=== PATIENT | female | born 1975 | race Caucasian/White ===

== ENCOUNTER 2016-09-22 08:50 | Emergency (ER) | payer MEDICAID ==
[~2016-09-22] VITALS: Ht 162.6 cm; Wt 60.0 kg
[~2016-09-22 08:50] MED LIST: CALC1TAB98 PO; PREN1TAB17 PO
[2016-09-22 08:51] VITALS: Ht 162.6 cm; Wt 60.0 kg
[2016-09-22] MEDS ORDERED: IBUP-1542 PO (09:14)
[2016-09-22] MEDS ORDERED: AMOX1TAB10 PO (09:14)
--- NOTE | 2016-09-22 09:22 | ERD ---
ER Documentation Chief Complaint Date/Time DATE: 09/22/16 TIME: 09:15 Chief Complaint dog bite to lt thigh on tuesday HPI 41 yo female comes in with a dog bite to her left thigh that occurred 2 days ago. She states that this happened on Tuesday then the next day she noticed greenish discoloration. She states the dog has its vaccinations. She does not recall her last tetanus shot. ROS All systems reviewed and are negative except as per history of present illness. Medications Home Meds Active Scripts Ibuprofen* (Motrin*) 600 Mg Tab, 600 MG PO Q6, #15 TAB Prov:BRANDEE CARREON PA-C 09/22/16 Amoxicillin/Potassium Clav (Amox-Clav 875-125 mg Tablet) 875-125 mg Tab, 1 TAB PO BID for 5 Days, #10 TAB Prov:BRANDEE CARREON PA-C 09/22/16 Reported Medications Calcium Carbonate/Vitamin D3 (Calcium + D Tablet) 1 Udtab Tablet, 1 UDTAB PO AM 12/04/13 Vit-Iron Fumarate-FA ( Tablet) 1 Each Tablet, 1 TAB PO DAILY, TAB 12/04/13 Allergies Allergies: Uncoded Allergies: no know allergies (Allergy, Unknown, 12/04/13) PMhx/Soc Medical and Surgical Hx: pt denies Medical Hx, pt denies Surgical Hx Hx Alcohol Use: No Hx Substance Use: No Hx Tobacco Use: No Physical Exam Vitals Vital Signs Date Time Temp Pulse Resp B/P Pulse Ox O2 Delivery O2 Flow Rate FiO2 09/22/16 08:51 97.6 71 18 122/66 98 Physical Exam General: Well-developed, well-nourished. The patient appears in no acute distress. HEENT: Head is normocephalic, atraumatic. No scleral icterus. Neck: Supple. Nontender. Lungs: Clear to auscultation. Normal air movement. Heart: Regular rate and rhythm. S1 and S2 are normal. No murmurs, gallops, or rubs. Abdomen: Nondistended. Extremities: No clubbing or cyanosis. Moving extremities x 4. No weakness. Neurologic: Alert and oriented 3. No focal deficits. Normal speech and gait. Skin: Abrasion to the left lateral thigh that is 1cm, healing. There is surrounding ecchymosis, no fluctuance or erythema Results 24 hrs Current Medications Medications (Trade) Dose Ordered Sig/Rafita Route PRN Reason Start Time Stop Time Status Last Admin Dose Admin Diphtheria/ Tetanus/Acell Pertussis (Adacel) 0.5 ml ONCE ONCE IM* 09/22/16 09:30 09/22/16 09:31 Procedures/MDM 41 yo female comes in with a dog bite that is superficial, with ecchymosis. No underlying abscess or cellulitis. Patient does not have systemic signs of infection. Departure Diagnosis: Primary Impression: Dog bite Condition: Good Patient Instructions: Dog Bite Referrals: [facility] YOU HAVE RECEIVED A MEDICAL SCREENING EXAM AND THE RESULTS INDICATE THAT YOU DO NOT HAVE A CONDITION THAT REQUIRES URGENT TREATMENT IN THE EMERGENCY DEPARTMENT. FURTHER EVALUATION AND TREATMENT OF YOUR CONDITION CAN WAIT UNTIL YOU ARE SEEN IN YOUR DOCTORS OFFICE WITHIN THE NEXT 1-2 DAYS. IT IS YOUR RESPONSIBILITY TO MAKE AN APPOINTMENT FOR FOLOW-UP CARE. IF YOU HAVE A PRIMARY DOCTOR --you should call your primary doctor and schedule an appointment IF YOU DO NOT HAVE A PRIMARY DOCTOR YOU CAN CALL OUR PHYSICIAN REFERRAL HOTLINE AT IF YOU CAN NOT AFFORD TO SEE A PHYSICIAN YOU CAN CHOSE FROM THE FOLLOWING [facility] [address] [facility]. [facility] [address] [facility] [facility] [address] [facility] [facility] [address] [facility] [facility] [address] [facility]. [facility]. [address] [facility]. [facility] YOU HAVE RECEIVED A MEDICAL SCREENING EXAM AND THE RESULTS INDICATE THAT YOU DO NOT HAVE A CONDITION THAT REQUIRES URGENT TREATMENT IN THE EMERGENCY DEPARTMENT. FURTHER EVALUATION AND TREATMENT OF YOUR CONDITION CAN WAIT UNTIL YOU ARE SEEN IN YOUR DOCTORS OFFICE WITHIN THE NEXT 1-2 DAYS. IT IS YOUR RESPONSIBILITY TO MAKE AN APPOINTMENT FOR FOLOW-UP CARE. IF YOU HAVE A PRIMARY DOCTOR --you should call your primary doctor and schedule and appointment IF YOU DO NOT HAVE A PRIMARY DOCTOR YOU CAN CALL OUR PHYSICIAN REFERRAL HOTLINE AT . IF YOU CAN NOT AFFORD TO SEE A PHYSICIAN YOU CAN CHOSE FROM THE FOLLOWING [facility] INSTITUTIONS: [facility] [address] [place] [address] [facility] [address] [place] [address] [facility] + [facility] [address] [place] [address] [facility] URGENT CARE/SPECIALTIES Additional Instructions: Llame al doctor MAANA y nat amber RODO PARA DENTRO DE 1-2 DOHERTY.Dgale a la secretaria que nosotros le instruimos hacer esta rodo.Avise o llame si ma condicin se empeora antes de la rodo. Regresa aqui si peor o no mejor. BRANDEE CARREON PA-C Sep 22, 2016 09:22
[2016-09-22] MEDS ORDERED: DIPHTH/TET/ACEL PERTUSS (ADULT) 0.5 ML VIAL IM* ONE (09:30)
== END 2016-09-22 09:40 | disposition home or self-care (01) ==
LOC: FTE 08:50
DX: S71.152A Open bite, left thigh, initial encounter (principal); W54.0XXA Bitten by dog, initial encounter; Y92.9 Unspecified place or not applicable; Z23 Encounter for immunization
CPT/HCPCS: 90471; 90715